=== PATIENT | female | born 1975 | race Caucasian/White ===

== ENCOUNTER 2017-09-27 19:01 | Emergency (ER) | payer OTHER ==
[~2017-09-27] VITALS: Ht 175.3 cm; Wt 86.2 kg
[~2017-09-27 19:01] MED LIST: CEPHALEXIN 500500 M3 PO; IBUPROFEN 800800 M1 PO
[2017-09-27] MEDS ORDERED: ALLEGRA ALLERGY60 MG (19:16)
[2017-09-27] MEDS ORDERED: IBUPROFEN 800800 MG PO (20:15)
[2017-09-27] MEDS ORDERED: FLEXERIL PO (20:15)
[2017-09-27 20:29] VITALS: BP 162/91
== END 2017-09-27 20:30 | disposition home or self-care (01) ==
LOC: M.ERS 19:01
DX: M54.2 Cervicalgia (principal); M54.9 Dorsalgia, unspecified

== ENCOUNTER 2017-10-17 12:43 | Emergency (ER) | payer OTHER ==
[~2017-10-17] VITALS: Ht 175.3 cm; Wt 86.2 kg
[~2017-10-17 12:43] MED LIST changes: +ALLEGRA ALLERGY60 MG; +FLEXERIL PO; +IBUPROFEN 800800 MG PO
[2017-10-17] MEDS ORDERED: NORCO 5-325 TA1 EACH PO (13:24)
[2017-10-17] MEDS ORDERED: ROBAXIN 750 MG750 M1 PO (13:25)
[2017-10-17 13:39] VITALS: BP 153/99
== END 2017-10-17 13:39 | disposition home or self-care (01) ==
LOC: M.ERS 12:43
DX: M54.6 Pain in thoracic spine (principal); M54.2 Cervicalgia